=== PATIENT | female | born 1995 | race Caucasian/White ===

== ENCOUNTER 2018-09-12 06:45 | Emergency (ER) | payer MEDICAID, OTHER ==
[2018-09-12] MEDS ORDERED: predniSONE 20 MG TAB ONE (07:10)
[2018-09-12] MEDS ORDERED: diphenhydrAMINE 25 MG CAP ONE (07:10)
== END 2018-09-12 07:22 | disposition home or self-care (01) ==
LOC: BURERS 06:45
DX: T78.40XA Allergy, unspecified, initial encounter (principal); F17.210 Nicotine dependence, cigarettes, uncomplicated; F32.9 Major depressive disorder, single episode, unspecified; Z79.01 Long term (current) use of anticoagulants
CPT/HCPCS: 99283; J7506